=== PATIENT | male | born 1970 | race Caucasian/White ===

== ENCOUNTER → 2017-08-04 | Outpatient (CLI) | payer OTHER ==
[~2017-08-04] MED LIST: AMOX500T10 PO; CETI-260 PO; CETI10CA8 PO; DECONGESTANT; IBUP200C74 PO; LOR5/325 PO; OMEP-218 PO
--- NOTE | 2017-08-04 17:25 | RADIOLOGY IMAGING REPORT ---
FACILITY: [facility] PATIENT NAME: Mario Sarabia : 1970 MR: [id number] V: [id number] EXAM DATE: ORDERING PHYSICIAN: RAYNA BROWN TECHNOLOGIST: Location: [facility] [place] Patient: Mario Sarabia : 1970 Visit/Account:[id number] Date of Sevice: 08/04/2017 Right knee, three views. HISTORY: Injury, swelling and bruising. COMPARISON: None. The bones, joints, and soft tissues are unremarkable. No joint space narrowing. No fractures are id entified. No joint effusion. IMPRESSION: Negative for acute bony abnormality. Report Dictated By: Surinder Valdes MD at 08/04/2017 5:19 PM Report E-Signed By: Surinder Valdes MD at 08/04/2017 5:20 PM WSN:[email or web address]
--- NOTE | 2017-08-04 17:25 | RADIOLOGY IMAGING REPORT ---
FACILITY: [facility] PATIENT NAME: Mario Sarabia : 1970 MR: [id number] V: [id number] EXAM DATE: ORDERING PHYSICIAN: RAYNA BROWN TECHNOLOGIST: Location: [facility] Patient: Mario Sarabia : 1970 Visit/Account:[id number] Date of Sevice: 08/04/2017 Right ankle, three views. HISTORY: Injury, pain, swelling, bruising. COMPARISON: None. Mild soft tissue swelling is present in the medial and lateral aspects of the ankle. The bones, join ts, and soft tissues are otherwise unremarkable. No widening of the ankle mortise. No acute fractures are identified. IMPRESSION: Soft tissue swelling. Otherwise negative for acute bony abnormality. Report Dictated By: Surinder Valdes MD at 08/04/2017 5:20 PM Report E-Signed By: Surinder Valdes MD at 08/04/2017 5:21 PM WSN:[email or web address]
== END ==
LOC: RAD 16:50
PROVIDERS: ATTEND Physician Assistant Medical
DX: M25.471 Effusion, right ankle (principal)